=== PATIENT | male | born 1990 | race Caucasian/White ===

== ENCOUNTER 2020-12-21 19:09 | Emergency (ER) | payer SELFPAY ==
[~2020-12-21] VITALS: Ht 182.9 cm; Wt 81.8 kg
[2020-12-21 19:20] VITALS: TEMP 98
[2020-12-21] MEDS ORDERED: PERCOCET 325 MG1 TA2 PO (20:41)
[2020-12-21] MEDS ORDERED: FLEXERIL 1010 MG/TAB PO (20:41)
[2020-12-21 20:50] VITALS: BP 128/70; PULSE 78
== END 2020-12-21 20:50 | disposition home or self-care (01) ==
LOC: COL.ER 19:09
DX: S39.012A Strain of muscle, fascia and tendon of lower back, initial encounter (principal); Z87.891 Personal history of nicotine dependence; X50.0XXA Overexertion from strenuous movement or load, initial encounter; Y92.828 Other wilderness area as the place of occurrence of the external cause; Y99.0 Civilian activity done for income or pay
CPT/HCPCS: J1885